=== PATIENT | male | born 1955 | race African-American/Black ===

== ENCOUNTER 2023-06-29 12:58 | Emergency (ER) | payer BC, MEDICAID ==
[~2023-06-29] VITALS: Ht 177.8 cm; Wt 81.0 kg
[2023-06-29 13:01] VITALS: O2SAT 100
[2023-06-29] MEDS: ACETAMINOPHEN 325MG TABLET PO ONE (15:45)
[2023-06-29] MEDS ORDERED: KETOROLAC 60MG/2ML VIAL IM ONE (15:45)
[2023-06-29] MEDS: LIDOCAINE HCL 1% 20ML VIAL (Pyxis) INJ INFIL ONE (16:00)
[2023-06-29] MEDS: KETOROLAC 30MG/ML VIAL IM NR (16:11)
[2023-06-29] MEDS ORDERED: BO1 TP (17:12)
[2023-06-29] MEDS ORDERED: CEPH500C2 MT (17:14)
[2023-06-29] MEDS ORDERED: CEFAZOLIN SODIUM 1000MG/VIAL IM NR (17:15)
[2023-06-29] MEDS: BACITRACIN ZINC OINT UDPKT TOP ONE (17:15)
[2023-06-29] MEDS: CEFAZOLIN 2GM/100ML 100 ML IV SCH (18:25)
[2023-06-29 18:35] VITALS: BP 135/85; PULSE 78; RESP 14; TEMP 98.3
== END 2023-06-29 18:37 | disposition home or self-care (01) ==
LOC: ER 12:58
DX: S62.609B Fracture of unspecified phalanx of unspecified finger, initial encounter for open fracture (principal); H40.89 Other specified glaucoma; R51.9 Headache, unspecified; W19.XXXA Unspecified fall, initial encounter; Y93.89 Activity, other specified; Y92.89 Other specified places as the place of occurrence of the external cause; Y99.8 Other external cause status
CPT/HCPCS: 99285; 96365; 70450; 73100; 73120; 29130; 96372; 12002; J0690; J1885; J3490

== ENCOUNTER 2024-11-08 09:19 | Emergency (ER) | payer BC, MEDICAID ==
[~2024-11-08] VITALS: Ht 172.7 cm; Wt 64.0 kg
[~2024-11-08 09:19] MED LIST: BO1 TP; CEPH500C2 MT
[2024-11-08 09:20] VITALS: O2SAT 100
[2024-11-08] MEDS: ONDANSETRON HCL 4MG/2ML INJ IV ONE (10:45)
[2024-11-08] MEDS: MORPHINE SULFATE 4 MG/ML INJ (FOR IV/IM USE) IV ONE ×2 (10:46→11:16)
[2024-11-08 10:49] LABS: BASOPHILS % 0.4 % (0.0-2.0); EOSINOPHILS % 0.1 % (0.0-5.0); HEMATOCRIT. 30.5 % (42.0-52.0); HEMOGLOBIN. 10.3 g/dL (14.0-18.0); LYMPHOCYTES % 11.1 % (20.0-50.0); MEAN PLATELET VOLUME 8.6 fl (7.4-10.4); MONOCYTES % 9.2 % (2.0-8.0); NEUTROPHILS % 79.2 % (40.0-76.0); PLATELET 317 x1000/uL (130-400); RED BLOOD CELL COUNT 3.39 mill/uL (4.7-6.1); RED CELL DISTRIBUTION WIDTH 13.6 % (11.6-14.6)
[2024-11-08 11:02] LABS: CREATININE 0.9 mg/dL (0.6-1.3); UREA NITROGEN BLOOD 21 mg/dL (9-23)
[2024-11-08 15:40] VITALS: BP 128/72; PULSE 77; RESP 16; TEMP 36.8; O2SAT 16
== END 2024-11-08 15:53 | disposition short-term general hospital (02) ==
LOC: ER 09:47 → CMPBEDREQ 11-10 08:01
DX: M96.1 Postlaminectomy syndrome, not elsewhere classified (principal); H40.9 Unspecified glaucoma; F17.200 Nicotine dependence, unspecified, uncomplicated; M19.90 Unspecified osteoarthritis, unspecified site; Z79.899 Other long term (current) drug therapy
CPT/HCPCS: 99291; 72141; 96374; 72125; 96375; 80048; 85025; 36415; 72070; 72100; 93005; 96376; J2405; J2270